=== PATIENT | male | born 1975 | race Caucasian/White ===

== ENCOUNTER 2022-04-07 10:07 | Emergency (ER) | payer OTHER, SELFPAY ==
[2022-04-07] MEDS ORDERED: Bacitracin 1 PK ONE (11:00)
[2022-04-07] MEDS ORDERED: Ibuprofen 800 MG TAB ONE (11:00)
[2022-04-07] MEDS ORDERED: Cyclobenzaprine 10 MG TAB ONE (11:00)
[2022-04-07] MEDS ORDERED: Acetaminophen 500 MG TAB ONE (11:00)
== END 2022-04-07 11:14 | disposition home or self-care (01) ==
LOC: MADERS 10:07
DX: S09.90XA Unspecified injury of head, initial encounter (principal); S40.011A Contusion of right shoulder, initial encounter; S00.01XA Abrasion of scalp, initial encounter; V58.6XXA Passenger in pick-up truck or van injured in noncollision transport accident in traffic accident, initial encounter; I10 Essential (primary) hypertension; Z79.899 Other long term (current) drug therapy
CPT/HCPCS: 99283; G0390